=== PATIENT | female | born 1945 ===

== ENCOUNTER 2025-02-09 16:22 | Outpatient (RCR) | payer MEDICARE, SELFPAY | END 2025-02-09 23:59 | disposition home or self-care (01) | LOC: CRHB 16:22 | PROVIDERS: ATTENDING PHYSICIAN Internal Medicine Cardiovascular Disease; FAMILY PHYSICIAN Internal Medicine | DX: Z95.2 Presence of prosthetic heart valve (principal) | CPT/HCPCS: 93798; G0422; G0423 ==

== ENCOUNTER 2025-02-17 08:46 | Emergency (ER) | payer MEDICARE, SELFPAY ==
[2025-02-17 08:49] VITALS: BP 157/84
--- NOTE | 2025-02-17 09:29 | ED.GENMED ---
History of Present Illness
General
Chief Complaint: Back Pain
Time Seen by Provider: 02/17/25 09:28
History of Present Illness
History of Present Illness:
FOCUSED PAST MEDICAL HISTORY
- The patient has a history of CHF, high blood pressure, hypothyroidism, she had mitral valve replacement at [facility] earlier this year
REVIEW OF OLD RECORDS
- The patient had cardiac rehab here last month
Note:
CHIEF COMPLAINT(S)
Leg weakness and sensation of 'pins and needles' in the thighs.
HISTORY OF PRESENT ILLNESS
The patient is an 79-year-old female with a history of mitral valve replacement presenting with a complaint of leg weakness and sensation described as 'pins and needles' in the posterior thighs. The symptoms began this morning when the patient
arrived at cardiac rehabilitation for her 8:30 AM appointment. Upon exiting her vehicle, she experienced difficulty maintaining balance due to her legs giving out. The patient describes having a hint of similar symptoms before but not to this
extent. She has a known history of peripheral neuropathy affecting her feet, unrelated to diabetes, and typically experiences a sensation of her feet being 'asleep' without pain. The patient also reports stiffness, particularly when getting out of
bed, due to arthritis in her back. She denies chest pain, shortness of breath, or any acute increase in pain. The patient has a significant past medical history of a mitral valve replacement performed at [facility] on December 01 (presumably of the current
year), and she is currently undergoing cardiac rehabilitation. She mentioned being evaluated by cardiologists both at [facility] and [facility].
PAST MEDICAL AND SURGICAL HISTORY
- Mitral valve replacement (robotic, full replacement) on December 01 at [facility].
- Peripheral neuropathy affecting the feet.
- Arthritis in the back.
- History of stroke.
CHRONIC MEDICAL CONDITIONS SIGNIFICANTLY AFFECTING CARE
Chronic conditions affecting care: Peripheral neuropathy, arthritis, history of stroke.
SOCIAL DETERMINANTS OF HEALTH
No social determinants affecting health were mentioned.
PHYSICAL EXAM
- General: Well appearing in no distress
- HEENT: Moist oral mucosa
- Cardiovascular: I had difficultypalpating the DP pulses bilaterally however they are easily heard via Doppler
- Neurologic: Excellent strength all extremities, no coordination deficits, she walked in the room without difficulty, normal finger-nose testing, normal sensation, normal speech and language, NIHSS equals 0
- Psychiatric: Appropriate mental status, normal insight and judgement
- Extremities: Nontender, no edema, moves all extremities equally
- Skin: No rash, no lesions, some superficial varicosities noted to the lower extremities
SUMMARY OF ENCOUNTER
The patient was seen in the emergency department due to new-onset leg weakness and altered sensation in the lower extremities, presenting after an incident at cardiac rehabilitation. Given her history of mitral valve replacement and concerns about
stroke implications, her symptoms were evaluated thoroughly. The conduction of a physical examination aimed at assessing blood circulation and potential neurological factors.
ASSESSMENT
The patient exhibited symptoms suggestive of peripheral neuropathy exacerbation or potentially arthritic involvement, though further evaluation is required to rule out vascular or neurological causes given her medical history, including a past
history of stroke.
DIFFERENTIAL DIAGNOSIS
The Differential Diagnosis includes, in no particular order and is not limited to:
- Exacerbation of peripheral neuropathy
- Lumbar spinal stenosis
- Spinal cord compression
- Vascular insufficiency
- Transient ischemic attack
- Sciatica
- Rheumatoid arthritis exacerbation
- Polymyalgia rheumatica
- Myopathy
- Medication side effect
MEDICAL DECISION MAKING
- Chronic conditions affecting care: Peripheral neuropathy, arthritis, history of stroke.
-Data:
Category 1:
None mentioned.
Category 2:
(none mentioned).
Category 3:
Discussion of management not documented.
-Risk:
No immediate prescription drug management required at this visit.
RADIOLOGY
- Considered and offered CT imaging of the brain however the patient declines as she has a stroke scale of 0. X-ray lumbar spine obtained.
- X-ray shows loss of height at L1
SUMMARY OF ENCOUNTER
The patient, an elderly female with a history of mitral valve replacement, was seen in the emergency department after experiencing leg weakness and sensation abnormalities in the thighs. An evaluation revealed compression in the L1 region of the
lumbar spine, but no diagnosis of a compression fracture in this area was previously known. There was a mention of height loss, suggestive of possible osteopenia-related compression. No neurological deficits were detected, and the strength and
stroke scale appeared normal.
ASSESSMENT
Compression at L1 region in the lumbar spine without any neurological compromise. Possible osteopenia-related compression due to age and gender.
PLAN
Referral to a diversity specialist, either a neurosurgeon or an orthopedic surgeon, for further evaluation and management. Patient was advised that if symptoms worsen or new symptoms emerge, further imaging like a CT or MRI might be considered.
PATIENT EDUCATION AND COUNSELING
The patient was counseled on the likelihood of age-related compression changes in the spine and the commonality of such findings in older populations, particularly women. The importance of following up with a diversity specialist was emphasized for
further assessment and management. The patient was instructed to be cautious to avoid falls or injuries. Continuation of current cardiopulmonary rehabilitation activities was deemed safe.
FOLLOW-UP INSTRUCTIONS
The patient was provided with names of spine specialists for follow-up. The importance of scheduling an appointment with the specialist for further evaluation was stressed to the patient.
MEDICAL DECISION MAKING
-Chronic conditions affecting care: Peripheral neuropathy, arthritis, history of stroke.
Differential Diagnosis includes:
- Exacerbation of peripheral neuropathy
- Lumbar spinal stenosis
- Spinal cord compression
- Vascular insufficiency
- Transient ischemic attack
- Sciatica
- Rheumatoid arthritis exacerbation
- Polymyalgia rheumatica
- Myopathy
- Medication side effect
-Data:
Category 1
Discussion of the potential need for imaging such as CT or MRI if symptoms indicated a fracture or neurological compromise.
Category 2
My independent interpretation of the lumbar spine x-ray indicates compression at the L1 level without fracture fragments or neurologic compromise.
-Risk:
Consideration of Admission/Observation: Escalation of care including admission/observation was considered given the complexity and risk of the patients presenting complaint, exam findings, and/or their underlying comorbidities. However, ultimately I
feel the patient is safe for outpatient management with close follow-up. Reasoning: Work-up reassuring, does not reveal any acute life/organ threatening processes, patients symptoms well-controlled upon reevaluation, reexamination is reassuring,
vitals are stable, patient agreeable with discharge, reliable for follow-up.
DIAGNOSIS
- Compression fracture, lumbar region, without neurologic compromise, likely due to osteopenia (M48.56XG).
- Age-related height loss (R62.7).
Phy Exam
Physical Exam
Physical Exam:
See HPI
Course
Orders/Labs/Results
Orders:
Orders
02/17/25 09:41
CR Lumbar Spine Comp Min 4 Vw* Urgent
Comment:
Reason For Exam: pain; paresthesias and subjective weakness b/l LE
Vital Signs
Initial and Last Documented VS:
Initial Vital Signs
Temp Pulse Resp BP Pulse Ox
37.1 C 95 16 157/84 98
02/17/25 08:49 02/17/25 08:49 02/17/25 08:49 02/17/25 08:49 02/17/25 08:49
Last Documented Vital Signs
Temp Pulse Resp BP Pulse Ox
37.1 C 95 16 157/84 98
02/17/25 08:49 02/17/25 08:49 02/17/25 08:49 02/17/25 08:49 02/17/25 09:32
*Pulse Oximetry
SaO2: 98
Oxygen Mode of Delivery: Room air
Patient hypoxic: no
*Critical Care Note
Total Time (30-74mins, 75-104mins- exclusive of procedures): Not Applicable
ED Attending Note
-
Portions of this chart may have been created with voice recognition software.� Occasional wrong word or��sound alike� substitutions may have occurred due to the inherent limitations of voice recognition software.
Discharge Plan
Departure
Patient Disposition: Home (Routine Discharge)
Date of Disposition: 02/17/25
Time of Disposition: 10:24
Patient with high blood pressure during this ER visit?: Yes
Discharge Problem:
Compression fracture of L1 vertebra
Instructions: Vertebral Compression Fracture ED, BLOOD PRESSURE
Referrals:
Seda Orourke MD [Family Provider, Internal Medicine]
Chidi Reddy MD [Active, Orthopedics]
Nan Barry MD [Active, Neurosurgery]
Activity Restrictions/Additional Instructions:
X-ray read by radiology:
Mild dextroconvex scoliosis centered in the lower lumbar spine.
On the lateral view, mild to moderate compression deformity of the L1 vertebral body, with approximately 40-50% loss of height. No radiographic evidence for a retropulsed fragment. The age of this compression deformity is uncertain, with no
comparison examination available.
The rest of the vertebral body heights appear maintained.
Mild to moderate changes of degenerative disc disease, greatest at L5-S1 and L2-3. No evidence for spondylolisthesis or spondylolysis.
Bilateral lower lumbar facet degenerative change, left slightly greater than right.
Minimal degenerative change of the inferior sacroiliac joints.
Right hip prosthesis is present.
Moderate to large amount of stool within the visualized colon, suggesting a degree of constipation.
You could follow-up with a diversity specialist such as the orthopedist Dr. Reddy ([facility]) or the neurosurgeon Dr. Barry ([place]).
You can take Tylenol for pain which would be the safest. Return here if worse or other concerns.
On examination, your stroke scale is 0 (no evidence for stroke at this time).
Interventions
Interventions:
*Risk Screen - Suicide Last Done: 02/17/25 08:49
*Neglect/Abuse Screening Last Done: 02/17/25 08:49
Discharge Date and Time
Print Language: UGANDAN
[2025-02-17 10:40] VITALS: BP 136/81; BMI 27.4
== END 2025-02-17 10:44 | disposition home or self-care (01) ==
LOC: EMR 08:46
PROVIDERS: EMERGENCY PHYSICIAN Emergency Medicine; FAMILY PHYSICIAN Internal Medicine
DX: M48.56XA Collapsed vertebra, not elsewhere classified, lumbar region, initial encounter for fracture (principal); E03.9 Hypothyroidism, unspecified; E11.9 Type 2 diabetes mellitus without complications; I50.9 Heart failure, unspecified; Z86.73 Personal history of transient ischemic attack (TIA), and cerebral infarction without residual deficits; Z95.2 Presence of prosthetic heart valve
CPT/HCPCS: 99283; 72110

== ENCOUNTER 2025-03-15 14:01 | Outpatient (RCR) | payer MEDICARE, SELFPAY | END 2025-03-15 23:59 | disposition home or self-care (01) | LOC: CRHB 14:01 | PROVIDERS: ATTENDING PHYSICIAN Internal Medicine Cardiovascular Disease; FAMILY PHYSICIAN Internal Medicine | DX: Z95.2 Presence of prosthetic heart valve (principal) | CPT/HCPCS: G0422; G0423 ==

== ENCOUNTER 2025-04-15 16:02 | Outpatient (RCR) | payer MEDICARE, SELFPAY | END 2025-04-15 23:59 | disposition home or self-care (01) | LOC: CRHB 16:02 | PROVIDERS: ATTENDING PHYSICIAN Internal Medicine Cardiovascular Disease; FAMILY PHYSICIAN Internal Medicine | DX: Z95.2 Presence of prosthetic heart valve (principal) | CPT/HCPCS: G0422; G0423 ==

== ENCOUNTER 2025-05-06 13:45 | Outpatient (RCR) | payer MEDICARE, SELFPAY ==
[2025-05-03 09:51] LABS: HDL Cholesterol 81 mg/dl; LDL Cholesterol, Calculated 81 mg/dl; Very Low Density Lipoprotein 12 mg/dl (0-30)
== END 2025-05-06 14:52 | disposition home or self-care (01) ==
LOC: CRHB 13:45
PROVIDERS: ATTENDING PHYSICIAN Internal Medicine Cardiovascular Disease; FAMILY PHYSICIAN Internal Medicine
DX: Z95.2 Presence of prosthetic heart valve (principal)
CPT/HCPCS: 36415; 80061; G0422; G0423